=== PATIENT | female | born 1990 | race Caucasian/White ===

== ENCOUNTER 2020-03-21 21:02 | Inpatient (IN) | payer OTHER ==
[~2020-03-21] VITALS: Ht 157.5 cm; Wt 69.4 kg
[2020-03-21] MEDS ORDERED: PRENATAL TABLE1 EAC1 PO (21:59)
[2020-03-21] MEDS ORDERED: FERROUS SULFAT325 MG PO (22:00)
== END 2020-03-24 15:41 | disposition home or self-care (01) | DRG 807 ==
LOC: LDR 21:02 → OB/GYN 21:02 → LDR 03-22 06:43 → OB/GYN 03-22 08:21
PROVIDERS: ADMIT Specialist; ATTEND Specialist
PROC: 4A1HXFZ Monitoring of Products of Conception, Cardiac Rhythm, External Approach (ICD-10-PCS; 2020-03-21)
PROC: 10E0XZZ Delivery of Products of Conception, External Approach (ICD-10-PCS; principal; 2020-03-22)
DX: O80 Encounter for full-term uncomplicated delivery (principal); Z37.0 Single live birth; Z3A.38 38 weeks gestation of pregnancy; Z20.828 Contact with and (suspected) exposure to other viral communicable diseases

== ENCOUNTER 2024-05-03 08:49 | Emergency (ER) | payer OTHER ==
[~2024-05-03] VITALS: Ht 157.5 cm; Wt 63.5 kg
[~2024-05-03 08:49] MED LIST: FERROUS SULFAT325 MG PO; PRENATAL TABLE1 EAC1 PO
[2024-05-03] MEDS ORDERED: METOCLOPRAMIDE HCL 10 MG TABLET PO ONE (11:45)
[2024-05-03] MEDS ORDERED: BUTALB/ACETAMINOPHEN/CAFFEINE 1 TAB TABLET PO ONE ×2 (11:45→11:55)
[2024-05-03] MEDS ORDERED: DIPHENHYDRAMINE HCL 50 MG/ML VIAL 1ML ONE (11:55)
[2024-05-03] MEDS ORDERED: KETOROLAC TROMETHAMINE 60 MG VIAL IM ONE (11:55)
[2024-05-03] MEDS ORDERED: DIPHENHYDRAMINE HCL 50 MG/ML VIAL 1ML IM ONE (12:00)
[2024-05-03] MEDS ORDERED: KETOROLAC TROMETHAMINE 30 MG VIAL IM ONE (12:00)
[2024-05-03] MEDS ORDERED: BUTALB-ASPIRIN1 EACH PO (12:09)
== END 2024-05-03 12:18 | disposition home or self-care (01) ==
LOC: ER 08:51
DX: G43.109 Migraine with aura, not intractable, without status migrainosus (principal); Z91.040 Latex allergy status

== ENCOUNTER 2024-06-09 09:18 | Emergency (ER) | payer OTHER ==
[~2024-06-09] VITALS: Ht 157.5 cm; Wt 70.3 kg
[~2024-06-09 09:18] MED LIST changes: +BUTALB-ASPIRIN1 EACH PO
[2024-06-09] MEDS ORDERED: BENZONATATE 200 MG CAPSULE PO ONE (10:00)
[2024-06-09] MEDS ORDERED: KETOROLAC TROMETHAMINE 60 MG VIAL IM ONE ×2 (10:00→10:04)
[2024-06-09 10:29] LABS: HEMATOCRIT 41.7 % (36.0-45.00); HEMOGLOBIN 13.9 g/dL (12.0-15.00); MEAN CELL VOLUME 87.7 fL (80.00-100.00); MEAN CORPUSCULAR HEMOGLOBIN 29.3 pg (27.00-32.0); MEAN CORPUSCULAR HGB CONC 33.4 g/dl (32.0-36.0); PLATELET COUNT 250 K/uL (150-450); RED BLOOD COUNT 4.76 M/uL (4.00-6.00); RED CELL DISTRIBUTION WIDTH 12.7 % (11.5-14.5)
[2024-06-09] MEDS ORDERED: SINGULAIR10 MG PO (11:37)
[2024-06-09] MEDS ORDERED: BENZONATATE200 M1 PO (11:37)
[2024-06-09] MEDS ORDERED: PEPCID AC20 MG PO (11:37)
[2024-06-09] MEDS ORDERED: LEVALBUTER0.63 MG/3 IH (11:37)
[2024-06-09] MEDS ORDERED: BUTALBIT-ACETA1 EACH PO (11:40)
== END 2024-06-09 11:55 | disposition home or self-care (01) ==
LOC: ER 09:20
PROVIDERS: General Practice
DX: J00 Acute nasopharyngitis [common cold] (principal); Z20.822 Contact with and (suspected) exposure to COVID-19; Z91.040 Latex allergy status